=== PATIENT | male | born 1990 | race Caucasian/White ===

== ENCOUNTER 2016-12-14 08:52 | Emergency (ER) | payer OTHER ==
[~2016-12-14] VITALS: Ht 180.3 cm; Wt 113.6 kg
--- NOTE | 2016-12-14 09:10 | ED.REPORT ---
HPI-Psychiatric Illness Date of Service Dec 14, 2016 ED Provider: Luke Pastrana DO Pt is an 25 year old male with a history of suicidal ideations and Cymbalta- treated depression who presents to the ED complaining of suicidal ideations onset this morning. He was looking in his medicine cabinet looking for something to overdose on. He reported that he talked to his regarding his suicidal ideations, and she told him to tell his boss who brought him to the ED. The pt states that "nothing went wrong this morning", and he doesn't know what started his suicidal ideations and it was all he could think about this morning. He denies a history of suicide attempts. The pt was admitted to a psych facility in January 2016. He has a psychiatrist/counselor, but he has not been going for the last 3-4 months. He reports that his counseling was helping him, but he stopped because he was working 8-5 on weekdays. Pt denies smoking and drug use. He drinks alcohol occasional, but reports that he has not had any recently. His primary concern was that the medications that he is currently taking are wrong and are having negative effects on his mental state. He says that the medication he previously took had powder inside but the most recent ones he picked up have beads. He does not want to be psychiatrically admitted today. Nursing Notes Stated Complaint: SUICIDAL Chief Complaint: Psychiatric Complaint Nursing Notes Reviewed: Yes Allergies: Coded Allergies: Penicillins (Verified Allergy, Unknown, 12/14/16) General Time Seen by MD: 09:10 Chief Complaint Suicidal ideation Hx Obtained From: Patient Arrived By: Walk-in Onset Occurred: 1 - 4 hours ago Symptom Duration: Since onset Progression Since Onset: Gradually improving Severity: Current: No pain currently Severity: Maximum: No pain Recent Healthcare: No recent doctor visit, No recent hospitalization Similar Sx Previous: Yes Risk-Psychiatric Illness Suicide Risk Stratification Suicide Risk Factors - Adult: : Prior psych admissionNo: Alcohol use, Previous attempt RF Statements: Risk factors reviewed Past Medical History Past Medical History Depression Suicidal ideations Past Surgical History None reported Smoking History Unknown if Ever Smoker Social History Works 8-5 on weekdays Alcohol Use: "Social" Drug Use: Denies drug use Other Social History: Good social support Ambulatory Status Independent Review of Systems Basic Review of Systems Eyes: Vision NL ENT: Hearing NL Respiratory: Denies: Non-productive cough, Shortness of breath Psychiatric: Reports: Suicidal ideation Complete sys rev & neg: except as marked. Physical Exam Initial Vital Signs Vital Signs (First) Date Time Temp Pulse Resp B/P Pulse Ox O2 Delivery O2 Flow Rate FiO2 12/14/16 09:19 36.0 73 16 137/96 98 Room Air Initial VS: Reviewed Head / Eyes: Atraumatic, Normocephalic, PERRL ENT: Mucous membranes moist, Conjunctiva normal Neck: Supple, Full range of motion Respiratory: Breath sounds normal, No respiratory distress Cardiovascular: Regular rate & rhythm, Heart sounds normal Extremities: Vascular intact, Neuro intact Skin: Warm, Dry, No cyanosis General/Constitutional: Awake, Alert, No acute distress, Cooperative, Not toxic appearing Neurologic: Oriented X3, Speech NL, No motor deficits, No sensory deficits Psychiatric: Affect NL, Not homicidal, No hallucinations, Cognitive function NL , Judgment/insight NL Mildly suicidal with thoughts of overdosing, but he is remorseful of it. Interpretation & Diagnostics Lab Results Interpretation Test 12/14/16 09:26 Hold Urine Received (Received) Re-Eval/Medical Decision Med Decision/Clinical Course At the onset of our encounter, this patient endorses his own safety, he is remorseful of these suicidal thoughts and agrees to keep himself safe, he does not feel that he needs hospitalization. However, social work is consulted and has gotten involved with the rest of the family to help make a safety plan and establish close outpatient follow-up. Return and follow-up precautions given. Source of Hx: Old records Re-Evaluation/Progress : Time of Eval: 15:15 )( Re-Eval Psychiatric: No danger to self Re-Evaluation/Progress Note: Pt rechecked. Informed pt of plan for discharge. Pt understands and agrees with plan for discharge. F/U instructions and RTER warnings given. All questions addressed. Counseled Regarding: Diagnosis, Lab results, Need for follow-up, When/why to return to ED Discharge & Departure Impression: Primary Impression: Suicidal ideations Disposition: Home Discharge Condition All VS Reviewed: Yes Condition: Stable Additional Instructions: Thank you for coming in. Be sure to stay safe. Use the social work plan as provided. Follow up with your counselor. Call 911, the Crisis line, counselor if you feel suicidal or return to the Emergency Department. Referrals: [facility] Scribe Attestation Portions of this note were transcribed by Nolan Diallo and Mary Bullock. I, Dr. Pastrana personally performed the history, physical exam and medical decision-making; I reviewed and confirmed the accuracy of the information in the transcribed note. Signed by: Nolan Diallo and Mary Bullock, Paul, 12/14/16 and 10:50 copies to: [facility] Luke Pastrana DO Dec 14, 2016 09:10 Mary Renteria Dec 14, 2016 09:41 NOLAN DIALLO Dec 14, 2016 12:37
[2016-12-14 09:19] VITALS: BP 137/96; PULSE 73; RESP 16; O2SAT 98
[2016-12-14 15:46] VITALS: BP 137/92; PULSE 67; RESP 12; O2SAT 98
== END 2016-12-14 15:49 | disposition home or self-care (01) ==
LOC: SED 08:52
DX: R45.851 Suicidal ideations (principal); F32.9 Major depressive disorder, single episode, unspecified; Z88.0 Allergy status to penicillin

== ENCOUNTER 2017-01-16 17:01 | Emergency (ER) | payer OTHER ==
[~2017-01-16] VITALS: Ht 177.8 cm; Wt 113.6 kg
[2017-01-16 17:10] VITALS: BP 138/98; PULSE 91; RESP 18; O2SAT 99
--- NOTE | 2017-01-16 21:05 | ED.REPORT ---
HPI-Psychiatric Illness Date of Service Jan 16, 2017 ED Provider: Dr. Virgen 26 y/o male with a hx of depression and anxiety presents to the ED complaining of severe anxiety, onset today. The pt states he had actually been feeling better and had not been suicidal. He reports feeling better when following his daily routine. Recently, he has been having difficulty maintaining his routine and difficulty sleeping, especially after his daughter's . The pt also lost his job today so he has been stressed and reports feeling suicidal earlier. He denies suicidal ideation in the ED and confirms safety. The pt has already met with the social services analyst and assures that he will return to the ED incase of worsening symptoms. He takes Cymbalta and BuSpar. Nursing Notes Stated Complaint: ANXIETY, DEPRESSION Chief Complaint: Psychiatric Complaint Nursing Notes Reviewed: Yes Allergies: Coded Allergies: Penicillins (Verified Allergy, Unknown, 01/16/17) Scheduled PRN Hydroxyzine Pamoate (HydrOXYzine Pamoate) 50 Mg Capsule 50 MG PO TID PRN PRN For Anxiety General Time Seen by MD: 21:04 Chief Complaint Anxious Hx Obtained From: Patient Arrived By: Walk-in Onset Occurred: 21 - 23 hours ago Symptom Duration: Since onset Progression Since Onset: Gradually improving Severity: Current: No pain currently Severity: Maximum: No pain Recent Healthcare: No recent doctor visit Similar Sx Previous: Yes Risk-Psychiatric Illness Suicide Risk Stratification RF Statements: Risk factors reviewed, No risk factors Past Medical History Past Medical History Depression Suicidal ideation Axiety Past Surgical History none reported Smoking History Unknown if Ever Smoker Social History lost job on 01/16/17 Alcohol Use: "Social" Drug Use: Denies drug use Other Social History: Good social support Ambulatory Status Independent Review of Systems Psychiatric: Reports: Anxiety, Depression, Stress, Denies: Homicidal ideation, Suicidal ideation Complete sys rev & neg: except as marked. Physical Exam Initial Vital Signs Vital Signs (First) Date Time Temp Pulse Resp B/P Pulse Ox O2 Delivery O2 Flow Rate FiO2 01/16/17 17:10 36.7 91 18 138/98 99 01/16/17 22:05 Room Air Initial VS: Reviewed Head / Eyes: Atraumatic, Normocephalic Neck: Supple, Non-tender, Full range of motion Respiratory: No respiratory distress Extremities: Vascular intact, Neuro intact, No swelling, No tenderness Skin: Warm, Dry, No cyanosis General/Constitutional: Awake, Alert, No acute distress, Cooperative Neurologic: Oriented X3, Speech NL, No motor deficits, No sensory deficits Psychiatric: Affect NL, Mood NL, Not suicidal, Not homicidal, Judgment/insight NL, Thought content NL Interpretation & Diagnostics Lab Results Interpretation Result Diagram: 01/16/17211201/16/172112 Test 01/16/17 20:16 01/16/17 21:13 Hold Urine Received (Received) White Blood Count 9.2th/mm3 (3.8-10.1) Red Blood Count 5.39mil/mm3 (4.40-5.80) Hemoglobin 15.7g/dL (13.8-17.2) Hematocrit 45.2% (41.0-50.0) Mean Corpuscular Volume 83.9fL (81-100) Mean Corpuscular Hemoglobin 29.1pg (27.0-35.0) Mean Corpuscular Hemoglobin Concent 34.7% (32.0-37.0) Red Cell Distribution Width 12.6% (12.3-15.4) Platelet Count 296bil/L (150-400) Neutrophils (%) (Auto) 53.4% (40-74) Lymphocytes (%) (Auto) 36.9% (14-46) Monocytes (%) (Auto) 7.8% (4-12) Eosinophils (%) (Auto) 1.5% (0-5) Basophils (%) (Auto) 0.2% (0-3) Sodium Level 138mEq/L (134-144) Potassium Level 4.2mEq/L (3.5-5.2) Chloride Level 101mEq/L (97-108) Carbon Dioxide Level 22mmol/L (18-29) Blood Urea Nitrogen 20mg/dL (6-20) Creatinine 0.84mg/dL (0.76-1.27) Estimat Glomerular Filtration Rate 117mL/min (>59) Glucose Level 98mg/dL (60-99) Calcium Level 9.9mg/dL (8.5-10.1) Total Bilirubin 0.4mg/dL (0.0-1.2) Aspartate Amino Transf (AST/SGOT) 34U/L (0-50) Alanine Aminotransferase (ALT/SGPT) 43U/L (0-44) Alkaline Phosphatase 92U/L (25-150) Total Protein 7.9g/dL (6.4-8.4) Albumin 4.4g/dL (3.4-5.0) Thyroid Stimulating Hormone (TSH) 3.930uIU/mL (0.450-4.500) Re-Eval/Medical Decision Med Decision/Clinical Course 26-year-old with depression and intermittent low-grade suicidality presents with situational stresses and increase in suicidal thoughts. He is not particularly actively suicidal at the moment and is able to contract for safety. He has no resources externally but was provided with a list of resources by the social services analyst. Some insurance concerns have complicated his medical care recently. These are about to be resolved apparently. He is discharged home for follow-up with PCP and with counseling resources as directed. Prompt return if worse if unsafe. Re-Evaluation/Progress : Time of Eval: 21:30 Re-Evaluation/Progress Note: Lashaun pt reports feeling significantly better and confirms his safety. Discussed diagnosis and plan to discahrge. He understands and agrees with the plan. All questions answered. Counseled Regarding: Diagnosis, Need for follow-up, When/why to return to ED Discharge & Departure Impression: Primary Impression: Depression Depression Type: unspecified Qualified Code: F32.9 - Major depressive disorder, single episode, unspecified Additional Impressions: Anxiety Acute situational disturbance )( Condition at Discharge: No suicidal ideation, No homicidal ideation Disposition: Home Discharge Condition All VS Reviewed: Yes Condition: Stable Patient Instructions: Anxiety (ED), Depression (ED) Additional Instructions: Continue your current medications. You may use Vistaril intermittently if needed for acute anxiety, if other measures to control your anxiety have not been sufficient. Follow-up with your doctor in the office. Return if you have any immediate issues, particularly if you are feeling unsafe or unable to control your thoughts of suicide. Follow-up with local resources as discussed with social work. Return any time for immediate admission Referrals: Balbina Roman MD (PCP) Scribe Attestation Portions of this note were transcribed by Gina Tolbert. I, Dr. Virgen, personally performed the history, physical exam and medical decision-making;I reviewed and confirmed the accuracy of the information in the transcribed note. Signed by Paul Cooper. 01/16/17 23:30 copies to: Balbina Roman MD, Christopher W MD Jan 16, 2017 21:05 Gina Tolbert Jan 16, 2017 21:42
[2017-01-16 21:25] LABS: BASOPHILS % (AUTO) 0.2 % (0-3); EOSINOPHILS % (AUTO) 1.5 % (0-5); MONOCYTES % (AUTO) 7.8 % (4-12); Mean Corpuscular Hemoglobin 29.1 pg (27.0-35.0); Mean Corpuscular Volume 83.9 fL (81-100); NEUTROPHILS % (AUTO) 53.4 % (40-74); Platelet Count 296 bil/L (150-400)
[2017-01-16] MEDS ORDERED: HYDR50CA3 PO (21:46)
[2017-01-16 22:05] VITALS: BP 128/88; PULSE 90; RESP 16; O2SAT 100
== END 2017-01-16 22:00 | disposition home or self-care (01) ==
LOC: SED 17:01
DX: F32.9 Major depressive disorder, single episode, unspecified (principal); F41.9 Anxiety disorder, unspecified; F43.0 Acute stress reaction; Z88.0 Allergy status to penicillin
CPT/HCPCS: 36415; 80053; 81002; 82075; 84443; 85025; 99284; Q0177